=== PATIENT | male | born 1990 | race Two or more races ===

== ENCOUNTER 2021-10-09 19:47 | Emergency (ER) | payer SELFPAY ==
[~2021-10-09] VITALS: Ht 170.2 cm; Wt 98.0 kg
[2021-10-09] MEDS ORDERED: IBUP-2028 MT (23:32)
[2021-10-09] MEDS ORDERED: TOPUD PO (23:32)
[2021-10-09] MEDS ORDERED: IBUPROFEN 400MG TABLET PO ONE (23:45)
[2021-10-09] MEDS ORDERED: ACETAMINOPHEN 325MG TABLET PO ONE (23:45)
[2021-10-09 23:53] VITALS: BP 136/90
== END 2021-10-09 23:58 | disposition home or self-care (01) ==
LOC: ER 19:47
DX: M25.571 Pain in right ankle and joints of right foot (principal); S50.312A Abrasion of left elbow, initial encounter; V29.9XXA Motorcycle rider (driver) (passenger) injured in unspecified traffic accident, initial encounter; Y93.89 Activity, other specified; Y92.89 Other specified places as the place of occurrence of the external cause; Y99.8 Other external cause status
CPT/HCPCS: 73080; 73590; 73610; 99284